=== PATIENT | male | born 1950 | race Caucasian/White ===

== ENCOUNTER 2016-06-11 09:32 | Observation (INO) | payer OTHER ==
--- NOTE | 2016-06-11 09:46 | CPEKG ---
Heart Rate: 54 RR Interval: 1111 P-R Interval: 224 QRSD Interval: 82 QT Interval: 424 QTC Interval: 402 P [place]: 25 QRS [place]: -2 T Wave [place]: 8 EKG Severity - ABNORMAL ECG - EKG Impression: SINUS RHYTHM EKG Impression: FIRST DEGREE AV BLOCK EKG Impression: similar to previous Electronically Signed By: Geovanny Stock 11-Jun-2016 11:44:02
[2016-06-11 10:31] LABS: % IMMATURE GRANULYOCYTES 0.2 % (0.0-1.1); ABSOLUTE IMMATURE GRANULOCYTES 0.01 10^3/uL (0.00-0.10); ADD DIFF? NO; ADD MORPH? NO; ADD SCAN? NO; ATYPICAL LYMPHOCYTE FLAG 20 (0-99); FRAGMENT RBC FLAG 0 (0-99); HEMATOCRIT 40.1 % (40.0-51.0); HEMOGLOBIN 13.9 g/dL (13.7-17.5); LEFT SHIFT FLG 0 (0-99); LIPEMIA HEMOLYSIS FLAG 90 (0-99); MEAN CELL HEMOGLOBIN 31.6 pg (27.9-34.1); MEAN CELL HEMOGLOBIN CONCENTR. 34.7 g/dL (32.4-36.7); MEAN CELL VOLUME 91.1 fL (81.5-99.8); MEAN PLATELET VOLUME 10.1 fL (8.7-11.7); PLATELET CLUMPS FLAG 0 (0-99); PLATELET COUNT 259 10^3/uL (150-400); RED CELL DISTRIBUTION WIDTH 12.9 % (11.5-15.2)
[2016-06-11 10:39] LABS: ANION GAP 10 mEq/L (8-16); CALCIUM 9.1 mg/dL (8.5-10.4); CARBON DIOXIDE 25 mEq/l (22-31); CHLORIDE 110 mEq/L (97-110); CREATININE 0.9 mg/dL (0.7-1.3); GLOMERULAR FILTRATION RATE > 60; GLUCOSE 120 mg/dL (70-100); POTASSIUM 4.4 mEq/L (3.5-5.2); SODIUM 145 mEq/L (134-144)
[2016-06-11 10:50] LABS: TROPONIN I < 0.012 ng/mL (0-0.034)
--- NOTE | 2016-06-11 11:29 | DX ---
Portable Chest, Single View 10:39 AM Indication: Chest pain Comparison: Two-view chest dated April 13, 2016 Findings: Lungs are well aerated and clear. No pneumothorax, edema, airspace consolidation or effusio n. Heart size normal for technique. A screw overlying the right glenoid and minimal deformity distal right clavicle are unchanged. Impression: Clear lungs. No acute process.
--- NOTE | 2016-06-11 11:33 | EDPHY ---
H & P Stated Complaint: sob/dizzy substernal cp Time Seen by Provider: 06/11/16 11:12 HPI/ROS: CHIEF COMPLAINT: Pre syncope HISTORY OF PRESENT ILLNESS: The patient is a 65-year-old healthy man with a history of SVT status post ablation currently on Xarelto for history of PE that was provoked by surgery and on verapamil for frequent PVCs that have subsided over the last couple of weeks. He is seen by Dr. Peralta. Yesterday he was doing some remodeling and noticed that every time he bends forward and stood back up he felt very lightheaded. His symptoms resolved after several seconds. Today he felt short of breath walking the dog or walking from the car the hospital. He denies chest pain or GI symptoms. He is not short of breath at rest. Denies recent febrile or viral type infections. REVIEW OF SYSTEMS: Constitutional: denies: chills, fever, recent illness, recent injury EENTM: denies: blurred vision, double vision, nose congestion Respiratory: See HPI Cardiac: denies: chest pain, irregular heart rate, lightheadedness, palpitations Gastrointestinal/Abdominal: denies: abdominal pain, diarrhea, nausea, vomiting, blood streaked stools Genitourinary: denies: dysuria, frequency, hematuria, pain Musculoskeletal: denies: joint pain, muscle pain Skin: denies: lesions, rash, jaundice, bruising Neurological: denies: headache, numbness, paresthesia, tingling, dizziness, weakness Hematologic/Lymphatic: denies: blood clots, easy bleeding, easy bruising Immunologic/allergic: denies: HIV/AIDS, transplant EXAM: GENERAL: Well-appearing, well-nourished and in no acute distress. HEAD: Atraumatic, normocephalic. EYES: Pupils equal round and reactive to light, extraocular movements intact, sclera anicteric, conjunctiva are normal. ENT: TMs normal, nares patent, oropharynx clear without exudates. Moist mucous membranes. NECK: Normal range of motion, supple without lymphadenopathy or JVD. LUNGS: Breath sounds clear to auscultation bilaterally and equal. No wheezes rales or rhonchi. HEART: Regular rate and rhythm without murmurs, rubs or gallops. ABDOMEN: Soft, nontender, normoactive bowel sounds. No guarding, no rebound. No masses appreciated. BACK: No CVA tenderness, no spinal tenderness, step-offs or deformities EXTREMITIES: Normal range of motion, no pitting or edema. No clubbing or cyanosis. NEUROLOGICAL: Cranial nerves II through XII grossly intact. Normal speech, normal gait. 5/5 strength, normal movement in all extremities, normal sensation PSYCH: Normal mood, normal affect. SKIN: Warm, dry, normal turgor, no visible rashes or lesions. Source: Patient Exam Limitations: No limitations - Personal History Current Tetanus/Diphtheria Vaccine: Yes Tetanus Vaccine Date: 08/2011 - Medical/Surgical History Hx Asthma: No Hx Chronic Respiratory Disease: No Hx Diabetes: No Hx Cardiac Disease: Yes Hx Renal Disease: No Hx Cirrhosis: No Hx Alcoholism: No Hx HIV/AIDS: No Hx Splenectomy or Spleen Trauma: No Other PMH: Prostate CA, ablation for SVT hr last year/knee and shoulder surgery T&A/ DVT, inguinal hernia repair. - Family History Significant Family History: No pertinent family hx - Social History Smoking Status: Never smoked Alcohol Use: Sober Drug Use: None Constitutional: Initial Vital Signs Temperature (C) 36.4 C 06/11/16 09:36 Heart Rate 56 L 06/11/16 09:36 Respiratory Rate 18 06/11/16 09:36 Blood Pressure 120/66 06/11/16 09:36 O2 Sat (%) 95 06/11/16 09:36 O2 Delivery Mode Room Air Allergies/Adverse Reactions: Iodinated Contrast Media - Oral and Allergy (Severe, Verified 06/11/16 09:34) Hives enoxaparin sodium [From Lovenox] Allergy (Intermediate, Verified 06/11/16 09:34) Rash Penicillins Allergy (Verified 06/11/16 09:34) Unknown Home Medications: Medication Instructions Recorded Atorvastatin Calcium [Lipitor 10 10 mg PO DAILY 05/27/15 mg (*)] Carboxymethylcellulose 1% [Refresh 1 drop EACHEYE Q4 PRN 05/27/15 Celluvisc (*)] Rivaroxaban [Xarelto 10mg (*)] 20 mg PO DAILY 05/27/15 Verapamil HCl [Verapamil Sr] 120 mg PO DAILY 06/11/16 Medical Decision Making - Diagnostics EKG Interpretation: An EKG obtained and was read and documented in trace view. Please see trace view for full reading and report. Sinus rhythm, rate of 54 first-degree block ED Course/Re-evaluation: The patient is asymptomatic while lying in bed. He is currently symptomatic that when he exerts himself or clinically orthostatic. His blood pressure is stable. He is sinus bradycardia on EKG with a first-degree block. I will admit him for observation the EACU and anticipate he will be seen by Dr. Peralta as well. I discussed the case with Radha who will admit to Dr. madison 12:04 p.m. I discussed the case with Dr. Peralta who will consult. Differential Diagnosis: Partial list of the Differential diagnosis considered include but were not limited to; arrhythmia, pre syncope, dehydration, sepsis, acute coronary disease, bradycardia and although unlikely based on the history and physical exam, I also considered dissection, aneurysm, PE. - Data Points Laboratory Results: Laboratory Results 06/11/16 09:50 06/11/16 09:50 06/11/16 09:50 WBC 5.16 10^3/uL (3.80-9.50) RBC 4.40 10^6/uL (4.40-6.38) Hgb 13.9 g/dL (13.7-17.5) Hct 40.1 % (40.0-51.0) MCV 91.1 fL (81.5-99.8) MCH 31.6 pg (27.9-34.1) MCHC 34.7 g/dL (32.4-36.7) RDW 12.9 % (11.5-15.2) Plt Count 259 10^3/uL (150-400) MPV 10.1 fL (8.7-11.7) Neut % (Auto) 54.3 % (39.3-74.2) Lymph % (Auto) 34.3 % (15.0-45.0) [place] % (Auto) 8.5 % (4.5-13.0) Eos % (Auto) 1.9 % (0.6-7.6) Baso % (Auto) 0.8 % (0.3-1.7) Nucleat RBC Rel Count 0.0 % (0.0-0.2) Absolute Neuts (auto) 2.80 10^3/uL (1.70-6.50) Absolute Lymphs (auto) 1.77 10^3/uL (1.00-3.00) Absolute Monos (auto) 0.44 10^3/uL (0.30-0.80) Absolute Eos (auto) 0.10 10^3/uL (0.03-0.40) Absolute Basos (auto) 0.04 10^3/uL (0.02-0.10) Absolute Nucleated RBC 0.00 10^3/uL (0-0.01) Immature Gran % 0.2 % (0.0-1.1) Immature Gran # 0.01 10^3/uL (0.00-0.10) Sodium 145 H mEq/L (134-144) Potassium 4.4 mEq/L (3.5-5.2) Chloride 110 mEq/L (97-110) Carbon Dioxide 25 mEq/l (22-31) Anion Gap 10 mEq/L (8-16) BUN 18 mg/dL (7-23) Creatinine 0.9 mg/dL (0.7-1.3) Estimated GFR > 60 Glucose 120 H mg/dL (70-100) Calcium 9.1 mg/dL (8.5-10.4) Troponin I < 0.012 ng/mL (0-0.034) Departure - Departure Disposition: [facility] Inpatient Acute Clinical Impression: Pre-syncope, Bradycardia Condition: Fair
[2016-06-11] MEDS ORDERED: ONDANSETRON DISINTEGRATING 4 MG TAB PO PRN (13:11)
[2016-06-11] MEDS ORDERED: ACETAMINOPHEN 325 MG TAB PO PRN (13:11)
[2016-06-11] MEDS ORDERED: CARBOXYMETHYLCELLULOSE 1% 0.4 ML DROPERETTE EACHEYE PRN (13:13)
--- NOTE | 2016-06-11 15:23 | US ---
Bilateral Duplex/Doppler Carotid Sonography Clinical Indications: Dizziness, cardiac disease. Technique: The cervical portions of the carotid and vertebral arteries were imaged and interrogated by color and pulsed Duplex/Doppler. Spectral analysis was performed. Findings: Right Carotid: Right CCA peak systolic velocity = 75 cm/sec Right ICA peak systolic velocity = 88 cm/sec Right ECA peak systolic velocity = 67 cm/sec Right ICA/CCA systolic velocity ratio = 1.2 Velocities correlate to less than 50% diameter stenosis of the origin of the right internal carotid a rtery with respect to the normal distal internal carotid artery. Mild calcified plaque involving the right carotid bulb and proximal right internal carotid artery. Left Carotid: Left CCA peak systolic velocity = 71 cm/sec Left ICA peak systolic velocity = 86 cm/sec Left ECA peak systolic velocity = 59 cm/sec Left ICA/CCA systolic velocity ratio = 1.2 Velocities correlate to less than 50% diameter stenosis of the origin of the left internal carotid ar kelly with respect to the normal distal internal carotid artery. Mild calcified plaque involving the l eft carotid bulb and proximal left internal carotid artery. Vertebral Arteries: Antegrade flow is shown by pulsed Doppler of each vertebral artery. Impression: 1. Mild atherosclerotic disease bilateral carotid bulbs. 2. Velocities correlate to less than 50% diameter stenosis of the origin of the right internal caroti d artery. 3. Velocities correlate to less than 50% diameter stenosis of the origin of the left internal carotid artery. 4. Bilateral vertebral arteries are patent with antegrade flow. Measurement of carotid stenosis is based on velocity parameters that correlate the residual internal carotid diameter with [place] Symptomatic Carotid Endarterectomy Trial (NASCET) based stenosis levels.
[2016-06-11 20:12] VITALS: PULSE 54
--- NOTE | 2016-06-11 20:24 | PDGENHP ---
History and Physical - Chief Complaint Acute near syncope - History of Present Illness PCP: Dr Belcher Sandblasting Supervisor: Dr Peralta HPI: 65 yo M p/w acute near syncope characterized as feeling of "unsteadiness" w / associated shortness of breath, onset of symptoms on 06/10/16, duration lasting only seconds initially, then recurring and lasting approx 15 minutes on . The occurred at rest, but did seem to be exacerbated by standing and flexing at the waist. Alleviated by sitting and resting. He has also noted recent reduction in exercise tolerance and symptoms of lethargy over past several weeks. He reports his sleep has not been particularly poor, albeit he is only able to address his sleep apnea by attempting to sleep on his side. His oral intake of solids and liquids has been at his baseline, and he has not over indulged in alcohol. He denies parasthesias/paresis/headaches/overt chest pains , and reports that his palpitations have been alleviated by verapmil started approx 3 weeks ago. History Information - Allergies/Home Medication List Allergies/Adverse Reactions: Iodinated Contrast Media - Oral and Allergy (Severe, Verified 06/11/16 09:34) Hives enoxaparin sodium [From Lovenox] Allergy (Intermediate, Verified 06/11/16 09:34) Rash Penicillins Allergy (Verified 06/11/16 09:34) Unknown Home Medications: Atorvastatin Calcium [Lipitor 10 mg (*)] 10 mg PO DAILY 05/27/15 [Last Taken 02/15] Carboxymethylcellulose 1% [Refresh Celluvisc (*)] 1 drop EACHEYE Q4 PRN [Last Taken 05/24/15] Rivaroxaban [Xarelto 10mg (*)] 20 mg PO DAILY 05/27/15 [Last Taken 06/11/16] Verapamil HCl [Verapamil Sr] 120 mg PO DAILY 06/11/16 [Last Taken 06/11/16] I have personally reviewed and updated: family history, medical history, social history, surgical history - Past Medical History hyperlipidemia Additional medical history: Prostate Cancer. SVT s/p ablation. Symptomatic PVCs. Provoked PE - Surgical History Reports: hernia repair Additional surgical history: Knee, Shoulder, Vasectomy, Prostatectomy - Family History Additional family history: mother CVA, no CAD - Social History Smoking Status: Never smoked Alcohol Use: Occasionally Drug Use: None Additional social history: iADLs, works as a contractor, good baseline level of physical activity Review of Systems ROS: 10pt was reviewed & negative except for what was stated in HPI & below Constitutional: Reports: weakness Neurological: Reports: other (fatigue, unsteadiness) Physical Exam Temp Pulse Resp BP Pulse Ox 36.6 C 54 L 12 131/75 H 96 06/11/16 17:00 06/11/16 20:00 06/11/16 20:00 06/11/16 20:00 06/11/16 20:00 Constitutional: no apparent distress, appears nourished, not in pain Eyes: PERRL, anicteric sclera, EOMI Ears, Nose, Mouth, Throat: moist mucous membranes, hearing normal, ears appear normal, no oral mucosal ulcers Cardiovascular: regular rate and rhythym, no murmur, rub, or gallop, No edema Respiratory: no respiratory distress, no rales or rhonchi, clear to auscultation Gastrointestinal: normoactive bowel sounds, soft, non-tender abdomen, no palpable masses Skin: warm, normal color, no rashes or abrasions, no fluctuance, no induration, No mottled Musculoskeletal: full muscle strength, no muscle tenderness, normal joint ROM, no joint effusions Neurologic: AAOx3, sensation intact bilaterally, CN II-XII Intact, No weakness Psychiatric: interacting appropriately, not anxious, not encephalopathic, thought process linear Lab Data & Imaging Review 06/11/16 09:50 06/11/16 09:50 WBC 5.16 10^3/uL (3.80-9.50) 06/11/16 09:50 RBC 4.40 10^6/uL (4.40-6.38) 06/11/16 09:50 Hgb 13.9 g/dL (13.7-17.5) 06/11/16 09:50 Hct 40.1 % (40.0-51.0) 06/11/16 09:50 MCV 91.1 fL (81.5-99.8) 06/11/16 09:50 MCH 31.6 pg (27.9-34.1) 06/11/16 09:50 MCHC 34.7 g/dL (32.4-36.7) 06/11/16 09:50 RDW 12.9 % (11.5-15.2) 06/11/16 09:50 Plt Count 259 10^3/uL (150-400) 06/11/16 09:50 MPV 10.1 fL (8.7-11.7) 06/11/16 09:50 Neut % (Auto) 54.3 % (39.3-74.2) 06/11/16 09:50 Lymph % (Auto) 34.3 % (15.0-45.0) 06/11/16 09:50 [place] % (Auto) 8.5 % (4.5-13.0) 06/11/16 09:50 Eos % (Auto) 1.9 % (0.6-7.6) 06/11/16 09:50 Baso % (Auto) 0.8 % (0.3-1.7) 06/11/16 09:50 Nucleat RBC Rel Count 0.0 % (0.0-0.2) 06/11/16 09:50 Absolute Neuts (auto) 2.80 10^3/uL (1.70-6.50) 06/11/16 09:50 Absolute Lymphs (auto) 1.77 10^3/uL (1.00-3.00) 06/11/16 09:50 Absolute Monos (auto) 0.44 10^3/uL (0.30-0.80) 06/11/16 09:50 Absolute Eos (auto) 0.10 10^3/uL (0.03-0.40) 06/11/16 09:50 Absolute Basos (auto) 0.04 10^3/uL (0.02-0.10) 06/11/16 09:50 Absolute Nucleated RBC 0.00 10^3/uL (0-0.01) 06/11/16 09:50 Immature Gran % 0.2 % (0.0-1.1) 06/11/16 09:50 Immature Gran # 0.01 10^3/uL (0.00-0.10) 06/11/16 09:50 Sodium 145 mEq/L (134-144) H 06/11/16 09:50 Potassium 4.4 mEq/L (3.5-5.2) 06/11/16 09:50 Chloride 110 mEq/L (97-110) 06/11/16 09:50 Carbon Dioxide 25 mEq/l (22-31) 06/11/16 09:50 Anion Gap 10 mEq/L (8-16) 06/11/16 09:50 BUN 18 mg/dL (7-23) 06/11/16 09:50 Creatinine 0.9 mg/dL (0.7-1.3) 06/11/16 09:50 Estimated GFR > 60 06/11/16 09:50 Glucose 120 mg/dL (70-100) H 06/11/16 09:50 Calcium 9.1 mg/dL (8.5-10.4) 06/11/16 09:50 Troponin I < 0.012 ng/mL (0-0.034) 06/11/16 09:50 Visualized and Interpreted Chest x-ray results: Yes Chest X-Ray results: no infiltrate Visualized and Interpreted EKG results: Yes EKG Interpretation: Positive for: other (TWI in lead III, 1st AVB) Assessment & Plan Assessment: 65 yo M p/w pre-syncopal symptoms Plan: 1. Pre-syncope. Acute, new problem, further w/u indicated. Concerning for recurrent arrhythmia vs. vertebrabasilar insufficiency vs. ACS vs. obstructive CAD - PE less likely given that he is fully anticoagulated - monitor on tele o/n and place on outpt event monitor/linq if no arrhythmia captured - get ant/post circ US - cycle cardiac enzymes - d/w Dr. Peralta, he will review patient's stress test/echo which have reportedly been completed within past year and determine whether they should be repeated given his recent reduction in exercise tolerance vs. cath - make NPO in AM - get orthostatic VS 2. PVCs. Cont verapamil - reviewed outside records including ED Report by Dr. Geovanny Stock 04/13/16, given bystolic for symptomatic PVCs, adjusted to verapamil as outpt 3. Hx PE. Cont xarelto Diet. Regular PPx. High risk, on xarelto Code. Full Dispo. ADD 06/12/16, pending further w/u above
[2016-06-11] MEDS ORDERED: NS 1,000 ML IV SCH (23:45)
[2016-06-12 04:52] LABS: % IMMATURE GRANULYOCYTES 0.2 % (0.0-1.1); ABSOLUTE IMMATURE GRANULOCYTES 0.01 10^3/uL (0.00-0.10); ADD DIFF? NO; ADD MORPH? NO; ADD SCAN? NO; ATYPICAL LYMPHOCYTE FLAG 10 (0-99); FRAGMENT RBC FLAG 0 (0-99); HEMATOCRIT 38.4 % (40.0-51.0); HEMOGLOBIN 12.9 g/dL (13.7-17.5); LEFT SHIFT FLG 0 (0-99); LIPEMIA HEMOLYSIS FLAG 80 (0-99); MEAN CELL HEMOGLOBIN 31.2 pg (27.9-34.1); MEAN CELL HEMOGLOBIN CONCENTR. 33.6 g/dL (32.4-36.7); MEAN CELL VOLUME 92.8 fL (81.5-99.8); MEAN PLATELET VOLUME 9.7 fL (8.7-11.7); PLATELET CLUMPS FLAG 0 (0-99); PLATELET COUNT 218 10^3/uL (150-400); RED BLOOD CELL COUNT 4.14 10^6/uL (4.40-6.38); RED CELL DISTRIBUTION WIDTH 13.1 % (11.5-15.2)
[2016-06-12 05:19] LABS: ANION GAP 9 mEq/L (8-16); CARBON DIOXIDE 24 mEq/l (22-31); CHLORIDE 111 mEq/L (97-110); CREATININE 0.9 mg/dL (0.7-1.3); GLOMERULAR FILTRATION RATE > 60; GLUCOSE 97 mg/dL (70-100); POTASSIUM 4.3 mEq/L (3.5-5.2); SODIUM 144 mEq/L (134-144)
[2016-06-12 05:32] LABS: TROPONIN I < 0.012 ng/mL (0-0.034)
[2016-06-12 08:22] VITALS: BP 128/74; RESP 18; TEMP 98; O2SAT 94
[2016-06-12] MEDS ORDERED: VERAPAMIL ER 120 MG TAB PO SCH (09:00)
[2016-06-12] MEDS ORDERED: RIVAROXABAN 10 MG TAB PO SCH (09:00)
[2016-06-12] MEDS ORDERED: NON-FORMULARY NEW DRUG (Verapamil Hcl [Verapamil Sr] 120 MG) PO SCH (09:00)
[2016-06-12] MEDS ORDERED: ATORVASTATIN CALCIUM 10 MG TAB PO SCH (09:00)
--- NOTE | 2016-06-12 12:01 | PDDCSUM ---
Discharge Summary Discharge Summary: DISCHARGE SUMMARY FOLLOW-UP ITEMS: Follow-up linq recorder results DATE OF ADMISSION: 06/11/2016 DATE OF DISCHARGE: 06/12/2016 DISCHARGE DIAGNOSES: 1. Acute presyncope 2. Chronic PVCs 3. History of pulmonary embolism CONSULTATIONS: Cardiology by Dr. Peralta PROCEDURES / IMAGING: Carotid ultrasounds demonstrating no anterior or posterior circulating severe stenosis, patient has less than 50% stenosis bilaterally anteriorly CHIEF COMPLAINT: Acute presyncopal symptoms SUBJECTIVE: Patient feeling well, no recurrence of symptoms PHYSICAL EXAM ON DISCHARGE: Systolic blood pressure is negative on orthostatics, heart rate in the 50-60 range, systolic blood pressure 110 to 130 range, alert awake oriented x3 no apparent distress LABS ON DISCHARGE: Troponin negative HOSPITAL COURSE BY PROBLEM: 1. Acute presyncope. Patient presented with presyncopal symptoms including unsteadiness shortness of breath and generally feeling unwell. Is unclear whether his symptoms are secondary to anxiety or arrhythmia or bradycardia. The patient certainly had relative sinus bradycardia in the setting of verapamil use, but he is hesitant to discontinue his verapamil given his symptomatic PVCs. Dr. Peralta reviewed patient's most recent stress test and echocardiogram and was determined that no further cardiac risk stratification is indicated at this time. He did insert a link recorder and this will be reviewed in the outpatient setting. Of note, orthostatic vital signs were unremarkable, anterior and posterior circulation ultrasounds were also unremarkable, telemetry did not demonstrate a any arrhythmia. 2. Chronic PVCs. Patient has chronic PVCs and is currently on verapamil for this issue. 3. History of pulmonary embolism. Patient was continued on Xarelto. DISCHARGE MEDICATIONS: Please see official discharge medication reconciliation sheet in chart , no medication changes were made. DISCHARGE INSTRUCTIONS: Patient should follow up with Dr. Peralta within 3-5 days of discharge.
--- NOTE | 2016-06-14 17:31 | SUROPNOTE ---
[facility] Operative Report - Surgery Date of Procedure: 06/12/16 Indication: This patient is a 65 year old man, with a history of chronic PVCs, who presented to the hospital with acute pre-syncopal episode. His presentation was notable for sinus bradycardia in the setting of verapamil use. Implantable loop recorder placed in order to determine if arrhythmia or symptomatic bradycardia precipitated the presyncopal event. Procedure performed: 1. Placement of an implantable loop recorder. Description of procedure: Risks, benefits, and alternatives were discussed in detail. Informed consent was obtained. Left anterior chest was sterilely prepped and draped. 30cc of 1% lidocaine with epinephrine was utilized for local anesthetic, injected with a micropuncture needle. A skin incision was made with a #15 blade. Tract was dilated using dilating tool. The device was implanted with the implantation device. The antenna was placed cephalad. The incision was closed with samantha. Device implanted: [Company, name, model, serial] Portions of this note were documented by a medical investigator. I have reviewed this report and agree with its documentation. Report scribed for Dr. Percy Peralta. Report scribed by Dipti Dalal.
== END 2016-06-12 12:36 | disposition home or self-care (01) ==
LOC: F1N 12:09
PROVIDERS: ADMIT Internal Medicine; ATTEND Internal Medicine
PROC: 0JH60PZ Insertion of Cardiac Rhythm Related Device into Chest Subcutaneous Tissue and Fascia, Open Approach (ICD-10-PCS; principal; 2016-06-11)
DX: R55 Syncope and collapse (principal); I49.3 Ventricular premature depolarization; Z86.711 Personal history of pulmonary embolism; Z85.46 Personal history of malignant neoplasm of prostate; Z88.0 Allergy status to penicillin; I47.1 Supraventricular tachycardia; I25.10 Atherosclerotic heart disease of native coronary artery without angina pectoris; E78.5 Hyperlipidemia, unspecified; G47.33 Obstructive sleep apnea (adult) (pediatric)
CPT/HCPCS: 33282; 71010; 93005; 93880; 99285; G0378

== ENCOUNTER 2017-03-16 07:40 | Observation (INO) | payer OTHER ==
[2017-03-16] MEDS ORDERED: methylPREDNISolone SOD SUCC 125 MG/2 ML VIAL IVP ONE (07:42)
[2017-03-16] MEDS ORDERED: NS 1,000 ML IV ONE (07:42)
[2017-03-16] MEDS ORDERED: FAMOTIDINE 20 MG/NACL 50 ML IV ONE (07:42)
[2017-03-16] MEDS ORDERED: DIAZEPAM 5 MG TAB PO ONE (07:42)
[2017-03-16] MEDS ORDERED: ASPIRIN EC 325 MG TAB PO ONE (07:42)
--- NOTE | 2017-03-16 08:00 | CPEKG ---
Heart Rate: 55 RR Interval: 1091 P-R Interval: 216 QRSD Interval: 104 QT Interval: 452 QTC Interval: 433 P [place]: 22 QRS [place]: 2 T Wave [place]: 19 EKG Severity - NORMAL ECG - EKG Impression: SINUS RHYTHM Electronically Signed By: Issac Evangelista 16-Mar-2017 17:17:11
[2017-03-16 08:11] LABS: % IMMATURE GRANULYOCYTES 0.2 % (0.0-1.1); ABSOLUTE IMMATURE GRANULOCYTES 0.01 10^3/uL (0.00-0.10); ADD DIFF? NO; ADD MORPH? NO; ADD SCAN? NO; ATYPICAL LYMPHOCYTE FLAG 10 (0-99); FRAGMENT RBC FLAG 0 (0-99); HEMATOCRIT 41.7 % (40.0-51.0); HEMOGLOBIN 14.2 g/dL (13.7-17.5); LEFT SHIFT FLG 0 (0-99); LIPEMIA HEMOLYSIS FLAG 90 (0-99); MEAN CELL HEMOGLOBIN 31.5 pg (27.9-34.1); MEAN CELL HEMOGLOBIN CONCENTR. 34.1 g/dL (32.4-36.7); MEAN CELL VOLUME 92.5 fL (81.5-99.8); MEAN PLATELET VOLUME 9.9 fL (8.7-11.7); PLATELET CLUMPS FLAG 0 (0-99); PLATELET COUNT 244 10^3/uL (150-400); RED BLOOD CELL COUNT 4.51 10^6/uL (4.40-6.38)
[2017-03-16 08:19] LABS: INR 1.16 (0.83-1.16); PROTIME(PATIENT) 14.8 SEC (12.0-15.0)
[2017-03-16 08:27] LABS: ANION GAP 9 mEq/L (8-16); CALCIUM 9.2 mg/dL (8.5-10.4); CARBON DIOXIDE 26 mEq/l (22-31); CHLORIDE 110 mEq/L (97-110); CHOLESTEROL 126 mg/dL (140-220); GLOMERULAR FILTRATION RATE > 60; GLUCOSE 100 mg/dL (70-100); HIGH DENSITY LIPOPROTEIN 45 mg/dL (40-65); LDL/HDL RATIO 1.47 RATIO (1.00-3.64); LOW DENSITY LIPOPROTEIN 66 mg/dL (80-100); NON-HIGH DENSITY LIPOPROTEIN 81 mg/dL (90-129); POTASSIUM 4.4 mEq/L (3.5-5.2); SODIUM 145 mEq/L (134-144); TRIGLYCERIDE 78 mg/dL (40-150); VERY LOW DENSITY LIPOPROTEINS 15 mg/dL (8-25)
[2017-03-16] MEDS ORDERED: LIDOCAINE 1% 300 MG/30 ML SDV ONE (09:04)
[2017-03-16] MEDS ORDERED: MIDAZOLAM 2 MG/2 ML VIAL ONE (09:05)
[2017-03-16] MEDS ORDERED: fentaNYL 100 MCG/2 ML INJ ONE (09:05)
[2017-03-16] MEDS ORDERED: IOPAMIDOL (ISOVUE-370) 150 ML BTL IV ONE (09:05)
[2017-03-16] MEDS ORDERED: ADENOSINE 90 MG/30 ML VIAL IV ONE (09:06)
[2017-03-16] MEDS ORDERED: CLOPIDOGREL BISULFATE 75 MG TAB ONE (10:21)
--- NOTE | 2017-03-16 10:25 | PDHPUP ---
History & Physical Update H&P update statement: This history and physical update is based on an assessment of the patient which was completed after admission or registration (within 24 hours), but prior to the surgery/procedure. H&P update: no change in patient's condition since H&P completed
--- NOTE | 2017-03-16 10:25 | PDPROPOC ---
Sedation Plan of Care Sedation Plan of Care: mental status noted, patient educated of risks, benefits , alternatives, patient can tolerate sedation ASA Classification: ASA 2 Planned drugs: fentanyl, midazolam Mallampati Score: Class 2 Mallampati Reference Image: Patient passed 3-3-2 rule?: Yes
[2017-03-16] MEDS ORDERED: CLOPIDOGREL BISULFATE 75 MG TAB PO ONE (10:30)
[2017-03-16] MEDS ORDERED: BIVALIRUDIN 250 MG/5 ML VIAL IV ONE (10:50)
[2017-03-16] MEDS ORDERED: LORazepam 2 MG/ML INJ IVP PRN (11:36)
[2017-03-16] MEDS ORDERED: TEMAZEPAM 15 MG CAP PO PRN (11:36)
[2017-03-16] MEDS ORDERED: OXYCODONE/APAP 5/325 TAB PO PRN (11:36)
[2017-03-16] MEDS ORDERED: ONDANSETRON 4 MG/2 ML VIAL IVP PRN (11:36)
[2017-03-16] MEDS ORDERED: NITROGLYCERIN 0.4 MG BTL SL PRN (11:36)
[2017-03-16] MEDS ORDERED: ATROPINE SULFATE 1 MG/10 ML SYR IVP PRN (11:36)
[2017-03-16] MEDS ORDERED: HYDROCODONE/APAP 5/325 TAB PO PRN (11:36)
[2017-03-16] MEDS ORDERED: CARBOXYMETHYLCELLULOSE 1% 0.4 ML DROPERETTE EACHEYE PRN (11:42)
--- NOTE | 2017-03-16 12:13 | CPEKG ---
Heart Rate: 53 RR Interval: 1132 P-R Interval: 236 QRSD Interval: 92 QT Interval: 452 QTC Interval: 425 P [place]: 45 QRS [place]: -5 T Wave [place]: 29 EKG Severity - ABNORMAL ECG - EKG Impression: SINUS RHYTHM EKG Impression: FIRST DEGREE AV BLOCK Electronically Signed By: Issac Evangelista 16-Mar-2017 17:17:05
--- NOTE | 2017-03-16 22:03 | CPIP ---
[f rep st] INVASIVE CARDIAC PROCEDURE DATE OF PROCEDURE: 03/16/2017 INDICATIONS FOR PROCEDURE: Premature ventricular contractions, shortness of breath. PROCEDURE: 1. Nonselective right groin sheathogram. 2. Bilateral coronary angiography. 3. Left heart catheterization. 4. Left ventriculogram. 5. Percutaneous coronary intervention of iFR of ostial proximal left anterior descending. 6. Previous coronary intervention of ostial left anterior descending utilizing Synergy 3.0 x 16 mm d rug-eluting stent. BRIEF HISTORY: This is a 66-year-old male with history of known ostial proximal 50% LAD disease, who has been having worsening PVCs despite medical therapy. Given the patient's symptoms, as well as el ectrical findings, patient is consented for left heart catheterization. DESCRIPTION OF PROCEDURE: After informed consent, The patient was brought to [facility], where the right gr oin was prepped and draped in a sterile fashion, lidocaine. A short 6-Kazakh sheath in the right com mon femoral artery, verified angiographically. Through the 6-Kazakh sheath, a JL4 catheter was advan sharad in the left coronary artery. Images of the left coronary artery revealed normal left main. Left circumflex artery appeared to give off a ffxkfb-pd-qyihn marginal artery proximally, a smaller lobito nal artery secondary and appeared to be a left dominant circulation with an , LPDA, both o f which were healthy for disease. The LAD had proximal ostial and proximal tubular disease ranging u p to 70% angiographically. Distally the vessel appeared to be quite healthy with no significant steno sis, giving off a medium-sized diagonal artery in the midbody. After images were obtained, the JL4 c atheter was removed. The JR4 catheter advanced in the right coronary artery. Images of the right co ronary artery revealed normal ostial RCA and a nondominant right coronary artery which was healthy an d free of disease. The catheter was then pulled back. The pigtail catheter was advanced to the left ventricle. EDP was 50 mmHg. Left ventriculogram in ABAD position. EF of 65% with no wall motion ab normalities. There were no wall motion abnormalities. There was no pull-back gradient between the L V and the aorta. Pigtail catheter was removed over 0.035 guidewire. INTERVENTIONAL REPORT: At this time, the patient was administered 600 mg of Plavix p.o. and started on Angiomax bolus and drip. An EBU 3.5 guide was advanced to the aorta. The EBU was equalized in the aorta and an iFR wire and catheter were set up. This was again zeroed appropriately and equalized. Once this was performed, the EBU guide catheter was advanced into the left coronary artery where the iFR wire was then advanced down the LAD. iFR measurements were then obtained which showed an iFR of 0.83, indicating clinical physiologic significance of the proximal LAD lesion. We decided to proceed with intervention of the lesion with a predilatation with a 3.0 x 12 mm balloon at 10 atmospheres as performed. We then proceeded with stenting of the vessel with 3.0 x 60 mm Synergy stent deployed at 16 atmospheres. After deployment, angiogram obtained showed excellent patency of the stented area w ith no evidence of dissection or perforation. This was verified in orthogonal views. The wire was p ulled back. The guide catheter was removed. The right groin was sutured in place. Patient tolerate d the procedure well. No complications. IMPRESSION: 1. Successful percutaneous coronary intervention of high-grade ostial proximal left anterior descend ing which was verified by iFR prior to percutaneous coronary intervention. 2. Normal nondominant right coronary artery. 3. Normal left dominant left circumflex artery. 4. Normal ejection fraction. PLAN: The patient will be admitted overnight. If clinically stable, discharge within 24 hours. /[id number]/MODL
[2017-03-17 04:25] VITALS: O2SAT 94
[2017-03-17 05:33] LABS: % IMMATURE GRANULYOCYTES 0.5 % (0.0-1.1); ABSOLUTE IMMATURE GRANULOCYTES 0.06 10^3/uL (0.00-0.10); ADD DIFF? NO; ADD MORPH? NO; ADD SCAN? NO; ATYPICAL LYMPHOCYTE FLAG 0 (0-99); FRAGMENT RBC FLAG 0 (0-99); HEMOGLOBIN 13.4 g/dL (13.7-17.5); LEFT SHIFT FLG 0 (0-99); LIPEMIA HEMOLYSIS FLAG 80 (0-99); MEAN CELL HEMOGLOBIN 30.7 pg (27.9-34.1); MEAN CELL HEMOGLOBIN CONCENTR. 33.5 g/dL (32.4-36.7); MEAN CELL VOLUME 91.7 fL (81.5-99.8); MEAN PLATELET VOLUME 10.5 fL (8.7-11.7); PLATELET CLUMPS FLAG 0 (0-99); PLATELET COUNT 253 10^3/uL (150-400); RED BLOOD CELL COUNT 4.36 10^6/uL (4.40-6.38); RED CELL DISTRIBUTION WIDTH 13.1 % (11.5-15.2)
[2017-03-17 05:46] LABS: ANION GAP 12 mEq/L (8-16); CALCIUM 9.2 mg/dL (8.5-10.4); CARBON DIOXIDE 21 mEq/l (22-31); CHLORIDE 106 mEq/L (97-110); GLOMERULAR FILTRATION RATE > 60; GLUCOSE 123 mg/dL (70-100); POTASSIUM 4.3 mEq/L (3.5-5.2); SODIUM 139 mEq/L (134-144)
--- NOTE | 2017-03-17 06:59 | PDCARPN ---
Cardiology Progress Note Chief Complaint: PVCs Assessment/Plan: Assessment: s/p PCI to oLAD Plan: 03/17/17 06:57 doing well WBC elevation most likely from steroids as pt is feeling great/afebrile d/c home today re-start xarelto stay on plavix can hold ASA Time Spent With Patient: 25 min Objective: Vital Signs (8 Hrs) Temp Pulse Resp BP Pulse Ox 03/17/17 04:00 36.5 C 97 16 135/66 H 94 03/16/17 23:23 36.4 C 86 15 108/57 L 92 Intake/Output (24 Hrs) 03/16/17 03/17/17 03/18/17 05:59 05:59 05:59 Intake Total 350 Output Total 350 Balance 0 Intake: Oral (ml) 350 Output: Urine (ml) 350 Urinal 350 Other: Weight 81.6 kg Number of Voids Toilet 2 Urinal 1 Result Diagrams: 03/17/17 04:12 03/17/17 04:12 - Physical Exam Constitutional: healthy appearing Eyes: PERRL Cardiovascular: regular rate and rhythm Respiratory: clear to auscultate bilat Skin: warm Musculoskeletal: no muscular tenderness Neurologic: AAOx3 Psychiatric: cooperative ICD10 Worksheet Patient Problems: Problems Problem Status Onset Bradycardia Acute Pre-syncope Acute Supraventricular tachycardia Acute Antiphospholipid antibody syndrome Chronic Pulmonary embolism Chronic
[2017-03-17 07:11] VITALS: BP 130/70; PULSE 123; RESP 18; TEMP 98.2
--- NOTE | 2017-03-17 08:26 | GCON ---
[f rep st] CONSULTATION DISCHARGE DIAGNOSIS: Coronary artery disease. HOSPITAL COURSE: Briefly, this is a 66-year-old male with history of frequent PVCs with known histor y of coronary artery disease who was consented for a left heart catheterization. The patient was fou nd to have high-grade ostial LAD disease 70%, which was verified by IFR, which came out to be 0.83. The patient underwent successful PCI of the proximal ostial LAD with a Synergy 3.0 x 16 mm drug-eluti ng stent. Post procedure, patient has done very well. The patient has been ambulating the [facility] problems. He will be discharged home this morning with his home medications. Of note, the cathy ent did have a slight elevation in white count to 12,000 secondary to most likely steroid utilization prior to contrast allergy, as he is feeling great and he is afebrile. The patient will be discharge d home with his home medications including Xarelto. He will be started on Plavix 75 p.o. daily. Giv en the fact that he is already on Xarelto, we will hold his baby aspirin to minimize any untoward ble eding issues. He will follow up in the office in 1 weeks' time. /[id number]/MODL
[2017-03-17] MEDS: ASPIRIN EC 81 MG TAB PO SCH ×2 (08:36→08:38)
--- NOTE | 2017-03-17 08:59 | CPEKG ---
Heart Rate: 59 RR Interval: 1017 P-R Interval: 216 QRSD Interval: 88 QT Interval: 440 QTC Interval: 436 P Austin: 49 QRS Austin: -3 T Wave Austin: 44 EKG Severity - NORMAL ECG - EKG Impression: SINUS RHYTHM EKG Impression: FIRST DEGREE AV BLOCK EKG Impression: LEFT VENTRICULAR HYPERTROPHY Electronically Signed By: Florin Horne 17-Mar-2017 18:30:28
[2017-03-17] MEDS ORDERED: DILTIAZEM CD 120 MG CAP PO SCH (09:00)
[2017-03-17] MEDS ORDERED: RIVAROXABAN 10 MG TAB PO SCH (09:00)
[2017-03-17] MEDS ORDERED: CLOPIDOGREL BISULFATE 75 MG TAB PO SCH (09:00)
[2017-03-17] MEDS ORDERED: ATORVASTATIN CALCIUM 10 MG TAB PO SCH (09:00)
--- NOTE | 2017-03-17 16:23 | ASDISCHSUM ---
Discharge Information Plan Status:Home with No Needs Medically Cleared to Leave:03/16/2017 Discharge Date:03/17/2017 10:50 AM CM D/C Disposition: ADT D/C Disposition:Home, Routine, Self-Care Projected Discharge Date:03/17/2017 12:00 AM Transportation at D/C: Discharge Delay Reason: Follow-Up Date:03/17/2017 12:00 AM Discharge Slot: Final Diagnosis: Placement Information Patient Contact Information Contact Name:JAVIER Relationship: Address:[address] City:[place] [facility] Phone: [facility]/Zip Code:[place] [address] Email: Financial Information Financial Class:HMO and PPO Plans Primary Plan Desc:[employer]YNCH PPO Primary Plan Number:[id number] Secondary Plan Desc: Secondary Plan Number: Assessment Information Intervention Information
== END 2017-03-17 10:50 | disposition home or self-care (01) ==
LOC: FCATH 07:40 → F2W 11:37
PROVIDERS: ADMIT Internal Medicine Cardiovascular Disease; ATTEND Internal Medicine Cardiovascular Disease
PROC: B2151ZZ Fluoroscopy of Left Heart using Low Osmolar Contrast (ICD-10-PCS; principal; 2017-03-16)
PROC: 4A1335C Monitoring of Arterial Flow, Coronary, Percutaneous Approach (ICD-10-PCS; principal; 2017-03-16)
PROC: 027034Z Dilation of Coronary Artery, One Artery with Drug-eluting Intraluminal Device, Percutaneous Approach (ICD-10-PCS; principal; 2017-03-16)
PROC: B2111ZZ Fluoroscopy of Multiple Coronary Arteries using Low Osmolar Contrast (ICD-10-PCS; principal; 2017-03-16)
PROC: 4A023N7 Measurement of Cardiac Sampling and Pressure, Left Heart, Percutaneous Approach (ICD-10-PCS; principal; 2017-03-16)
DX: I25.10 Atherosclerotic heart disease of native coronary artery without angina pectoris (principal); I49.3 Ventricular premature depolarization; G47.33 Obstructive sleep apnea (adult) (pediatric)
CPT/HCPCS: 92928; 93005; 93458; 93571; C1725; C1769; C1887; G0378; C1874; C9600; J0153; J0461; J0583; J1200; J1644; J2250; J2930; J3010; Q9967

== ENCOUNTER 2017-11-19 16:40 | Emergency (ER) | payer OTHER ==
--- NOTE | 2017-11-19 17:17 | EDPHY ---
H & P Time Seen by Provider: 11/19/17 17:02 HPI/ROS: CHIEF COMPLAINT: Dizziness and blurred vision HISTORY OF PRESENT ILLNESS: Patient is a 67-year-old male here with a chief complaint of dizziness and blurred vision starting yesterday evening. He reports that he has been feeling"off for the last few days and then last night he awoke from his sleep after having trouble sleeping around midnight. He is experiencing severe dry mouth and got up to go to the restroom and felt that he was off balance. He was able to ambulate to the restroom without difficulty. He has had no trouble picking up things or any weakness or numbness in his extremities. He went back to sleep but again struggled with sleep and only slept for about 2 hr this morning. Upon awakening he had continued blurry vision and feeling lightheaded. He also describes feeling that he is off balance when he is trying to walk but is able to walk. Approximately 1 hr prior to arrival in the ER he had approximately 3 min of left arm paresthesias but no weakness. Denies any chest pain or shortness of breath during this episode. Does have a history of coronary artery disease and had a stent placed last March 2017. Additionally he has a history of multiple pulmonary emboli and is on Xarelto. He has been compliant with his medications. Additionally has a history of ablation was times to the last of which was 2 years ago for frequent PVCs. He wears implantable event monitor was placed last year. Last week he reports that he was drinking heavily while out of town. He typically drinks 2 glasses of wine per evening. Yesterday evening he only had half a glass of wine. Denies any other drug use or smoking. Denies using any over-the -counter medication. He has not been sick and has not had a sore throat, cough , fever or any abdominal pain recently. REVIEW OF SYSTEMS: Constitutional: No fever, no chills. Eyes: No discharge. ENT: No sore throat. Cardiovascular: No chest pain, no palpitations. Respiratory: No cough, no shortness of breath. Gastrointestinal: No abdominal pain, no vomiting. Genitourinary: No hematuria. Musculoskeletal: No back pain. Skin: No rashes. Neurological: No headache. Smoking Status: Never smoked Physical Exam: General Appearance: Alert and no distress. Eyes: Pupils equal and round no injection no nystagmus Respiratory: Chest is nontender, lungs are clear to auscultation. Cardiac: regular rate and rhythm. No diaphoresis or leg swelling. No calf tenderness. Gastrointestinal: Abdomen is soft and nontender, no masses, bowel sounds normal. Musculoskeletal: Neck is supple and nontender. No JVD Extremities have full range of motion and are nontender. Equal strength in bilateral upper extremities and lower extremities. Skin: No rashes or lesions. Neuro: Cranial nerves grossly intact. Normal Romberg. No nystagmus. Equal grasp. No ulnar drift. Able to ambulate without difficulty. Normal heel to anderson. He did struggle with finger to nose on the left side but after repetition was able to complete this without difficulty. Constitutional: Initial Vital Signs Temperature (C) 37.0 C 11/19/17 16:45 Heart Rate 61 11/19/17 16:45 Respiratory Rate 16 11/19/17 16:45 Blood Pressure 135/67 H 11/19/17 16:45 O2 Sat (%) 98 11/19/17 16:45 O2 Delivery Mode Room Air Allergies/Adverse Reactions: Iodinated Contrast- Oral and IV Dye Allergy (Severe, Verified 06/11/16 09:34) Hives enoxaparin sodium [From Lovenox] Allergy (Intermediate, Verified 06/11/16 09:34) Rash Penicillins Allergy (Verified 06/11/16 09:34) Unknown Home Medications: Medication Instructions Recorded Atorvastatin Calcium 11/19/17 Diazepam [Valium 2 MG (*)] 2 mg PO BID PRN #10 tab 11/19/17 Diltiazem 11/19/17 Plavix 11/19/17 Xarelto 11/19/17 Medical Decision Making - Diagnostics Imaging Results: Imaging Impressions Brain MRI 11/19/17 17:33 Impression: 1. Scattered foci of white matter T2 hyperintensity are nonspecific, but probably reflect small vessel ischemic disease. 2. Negative for acute cortical ischemia. 3. Single punctate focus of diminished signal on the susceptibility weighted sequence which may be related to hemosiderin deposit from a remote petechial hemorrhagic foci. 4. See above report for additional findings. Results called and discussed with Percy Agarwal PA-C on November 19, 2017 at 1832 hours. Carotid Doppler Study 11/19/17 19:21 Impression: No significant plaque formation is identified and there is no Doppler evidence for hemodynamically significant stenosis of either carotid bifurcation. Results called to the emergency Department on 11/19/2017 at 20:21. Measurement of carotid stenosis is based on velocity parameters that correlate the residual internal carotid diameter with [place] Symptomatic Carotid Endarterectomy Trial (NASCET) based stenosis levels. ED Course/Re-evaluation: 67-year-old male here with dizziness and blurry vision. He isn't a normal neurologic exam other than difficulty with cerabd-rn-ghgj testing on the left side. MRI was ordered showing no mass, bleed or signs of ischemia. Initial EKG shows sinus rhythm with a rate of 57 1st degree AV block. Review of his prior EKG shows pre-existing 1st degree AV block in June 2016. Has no ST elevation or depression. No ectopy. I did call [employer] rep to discuss his the vent monitor. They were able to walk his last 24 hr of activity and have noted no events including no a arrhythmia, bradycardia or tachycardia. Patient was given IV fluid and a small dose of Valium and feels significantly improved. He is ambulatory without any ataxia or troubles with coordination or chest pain while ambulating. Differential Diagnosis: Arrhythmia, ACS, CVA, dehydration - Data Points Laboratory Results: Laboratory Results 11/19/17 17:45 11/19/17 17:18 11/19/17 11/19/17 11/19/17 17:49 17:45 17:45 WBC 6.22 10^3/uL 10^3/uL (3.80-9.50) RBC 4.40 10^6/uL 10^6/uL (4.40-6.38) Hgb 13.8 g/dL g/dL (13.7-17.5) Hct 41.0 % % (40.0-51.0) MCV 93.2 fL fL (81.5-99.8) MCH 31.4 pg pg (27.9-34.1) MCHC 33.7 g/dL g/dL (32.4-36.7) RDW 13.2 % % (11.5-15.2) Plt Count 254 10^3/uL 10^3/uL (150-400) MPV 9.9 fL fL (8.7-11.7) Neut % (Auto) 68.8 % % (39.3-74.2) Lymph % (Auto) 24.0 % % (15.0-45.0) Cascade % (Auto) 5.1 % % (4.5-13.0) Eos % (Auto) 1.3 % % (0.6-7.6) Baso % (Auto) 0.5 % % (0.3-1.7) Nucleat RBC Rel Count 0.0 % % (0.0-0.2) Absolute Neuts (auto) 4.28 10^3/uL 10^3/uL (1.70-6.50) Absolute Lymphs (auto) 1.49 10^3/uL 10^3/uL (1.00-3.00) Absolute Monos (auto) 0.32 10^3/uL 10^3/uL (0.30-0.80) Absolute Eos (auto) 0.08 10^3/uL 10^3/uL (0.03-0.40) Absolute Basos (auto) 0.03 10^3/uL 10^3/uL (0.02-0.10) Absolute Nucleated RBC 0.00 10^3/uL 10^3/uL (0-0.01) Immature Gran % 0.3 % % (0.0-1.1) Immature Gran # 0.02 10^3/uL 10^3/uL (0.00-0.10) APTT 39.3 SEC H SEC (23.0-38.0) Sodium Potassium Chloride Carbon Dioxide Anion Gap BUN Creatinine Estimated GFR Glucose Calcium Magnesium Total Bilirubin AST ALT Alkaline Phosphatase POC Troponin I 0.01 ng/mL ng/mL (0.00-0.08) Total Protein Albumin 11/19/17 17:18 WBC RBC Hgb Hct MCV MCH MCHC RDW Plt Count MPV Neut % (Auto) Lymph % (Auto) Cascade % (Auto) Eos % (Auto) Baso % (Auto) Nucleat RBC Rel Count Absolute Neuts (auto) Absolute Lymphs (auto) Absolute Monos (auto) Absolute Eos (auto) Absolute Basos (auto) Absolute Nucleated RBC Immature Gran % Immature Gran # APTT Sodium 138 mEq/L mEq/L (135-145) Potassium 3.8 mEq/L mEq/L (3.3-5.0) Chloride 105 mEq/L mEq/L (97-110) Carbon Dioxide 26 mEq/l mEq/l (22-31) Anion Gap 7 mEq/L L mEq/L (8-16) BUN 21 mg/dL mg/dL (7-23) Creatinine 0.9 mg/dL mg/dL (0.7-1.3) Estimated GFR > 60 Glucose 150 mg/dL H mg/dL (70-100) Calcium 9.1 mg/dL mg/dL (8.5-10.4) Magnesium 2.0 mg/dL mg/dL (1.6-2.3) Total Bilirubin 0.5 mg/dL mg/dL (0.1-1.4) AST 21 IU/L IU/L (17-59) ALT 34 IU/L IU/L (21-72) Alkaline Phosphatase 78 IU/L IU/L (38-126) POC Troponin I Total Protein 6.7 g/dL g/dL (6.3-8.2) Albumin 3.9 g/dL g/dL (3.5-5.0) Medications Given: Discontinued Medications Diazepam (Valium) 2 mg PO EDNOW ONE Stop: 11/19/17 19:22 Last Admin: 11/19/17 19:56 Dose: 2 mg Sodium Chloride (Ns) 1,000 mls @ 0 mls/hr IV EDNOW ONE; Wide Open PRN Reason: Protocol Stop: 11/19/17 17:22 Last Admin: 11/19/17 17:45 Dose: 1,000 mls Point of Care Test Results: Chemistry 11/19/17 17:49 POC Troponin I 0.01 ng/mL ng/mL (0.00-0.08) Departure - Departure Disposition: Home, Routine, Self-Care Clinical Impression: Dizziness, Dehydration Condition: Good Instructions: Dizziness (ED) Additional Instructions: Return to the ER for any worsening symptoms such as double vision, inability to walk, chest pain or shortness of breath. Referrals: Dipti Belcher MD [Primary Care Provider] - As per Instructions Prescriptions: Diazepam [Valium 2 MG (*)] 2 mg PO BID PRN #10 tab PRN Reason: Dizziness
[2017-11-19] MEDS ORDERED: NS 1,000 ML IV ONE (17:21)
--- NOTE | 2017-11-19 17:30 | CPEKG ---
Heart Rate: 57 RR Interval: 1053 P-R Interval: 220 QRSD Interval: 86 QT Interval: 432 QTC Interval: 421 P Kincaid: 18 QRS Kincaid: 6 T Wave Kincaid: 22 EKG Severity - ABNORMAL ECG - EKG Impression: SINUS RHYTHM EKG Impression: FIRST DEGREE AV BLOCK EKG Impression: BORDERLINE T WAVE ABNORMALITIES Electronically Signed By: Sylwia Billings 19-Nov-2017 19:50:01
[2017-11-19 18:13] LABS: PLATELET COUNT 254 10^3/uL (150-400)
[2017-11-19] MEDS ORDERED: DIAZEPAM 2 MG TAB PO ONE (19:21)
[2017-11-19 20:40] VITALS: BP 127/70
== END 2017-11-19 20:49 | disposition home or self-care (01) ==
DX: R42 Dizziness and giddiness (principal); E86.0 Dehydration
CPT/HCPCS: 84484-PO

== ENCOUNTER → 2018-02-05 | Outpatient (CLI) | payer OTHER | LOC: FIMAGING 10:42 | PROVIDERS: ATTEND Physician Assistant Medical | DX: R42 Dizziness and giddiness (principal) ==

== ENCOUNTER 2018-09-23 09:43 | Emergency (ER) | payer OTHER ==
[2018-09-23] MEDS ORDERED: LET GEL TOPICAL 1 EA SYR TP ONE (10:00)
--- NOTE | 2018-09-23 10:27 | EDPHY ---
H & P Time Seen by Provider: 09/23/18 10:00 HPI/ROS: CHIEF COMPLAINT: Hand laceration History by patient HISTORY OF PRESENT ILLNESS: 68-year-old [id number] man presents complaining of razor blade cut to his right small finger on the volar surface while using a box gluer swell as a 2nd cut on his right index finger. He denies any numbness in the finger or difficulty with movement. He is on Xarelto and baby aspirin for his underlying medical problems and has had difficulty controlling the bleeding. He is unsure how the accident happened. He was cutting caulk for drywall. His last tetanus shot was in 2001. He says it was a clean razor. He denies any other pain or injury. REVIEW OF SYSTEMS: As in HPI, and all other systems reviewed and are negative Smoking Status: Never smoked Physical Exam: General Appearance: Alert and no distress. Head: Normocephalic, atraumatic Eyes: Pupils equal and round no injection. Extraocular movements are intact. Musculoskeletal: Neck is supple and nontender. Extremities: Right hand: positive jagged deep 3 cm laceration to the volar surface of small finger between the PIP and D IP joint. Patient is able to fully flex against resistance from both PIP and DIP joint. The distal 2 point discrimination is intact. Distal cap refills less than 2 sec. Right index finger: Nonsuturable, superficial 2 cm laceration along radial- volar surface between PIP and D IP joint. Distal cap refills less than 2 sec, distal 2 point discrimination is intact, finger has full range of motion against resistance at all joints. Skin: No rashes or lesions except as described above. Constitutional: Initial Vital Signs Temperature (C) 37 C 09/23/18 09:49 Heart Rate 77 09/23/18 09:49 Respiratory Rate 16 09/23/18 09:49 Blood Pressure 157/82 H 09/23/18 09:49 O2 Sat (%) 95 09/23/18 09:49 O2 Delivery Mode Room Air Allergies/Adverse Reactions: enoxaparin sodium [From Lovenox] Allergy (Verified 09/23/18 09:52) Pt reports Rash Iodinated Contrast- Oral and IV Dye Allergy (Verified 09/23/18 09:52) Pt reports rash oxycodone Allergy (Verified 09/23/18 09:52) Pt reports "head goes nuts" Penicillins Allergy (Verified 09/23/18 09:52) Pt unsure of reaction Home Medications: Medication Instructions Recorded Xarelto 11/19/17 Aspirin 09/23/18 Bystolic 09/23/18 Paxil 09/23/18 MDM/Departure - MDM Procedures: Procedure: Laceration repair. Verbal consent was obtained from the patient. The 3 cm laceration on the right small finger was anesthetized in the usual fashion with a finger block with 0.25 % bupivacaine as well as topical LET to help with hemostasis.. The wound was irrigated, draped and explored to its base with a gloved finger. There were no deep structures involved. No tendon injury was identified. The wound was repaired with 8 x 5 0 Prolene interrupted sutures without complication. The wound repair was single layer an uncomplicated. The procedure was performed by myself. Medications Given: Discontinued Medications Tetracaine/Epinephrine/Lidocaine (Let Gel Topical) 1 ea TP EDNOW ONE Stop: 09/23/18 10:01 Last Admin: 09/23/18 10:02 Dose: 1 ea ED Course/Re-evaluation: 60-year-old man presents with finger laceration to his right small finger. There is no evidence of neurovascular compromise or tendon injury on exam. Wound was repaired we discussed signs and symptoms of infection, return precautions and home care. - Depart Disposition: Home, Routine, Self-Care Clinical Impression: Laceration Condition: Good Instructions: Finger Laceration (ED) Additional Instructions: You were seen by Dr. Gali Gaines today. Keep your dressing on for the next 24 hr. After that you may remove it and wash the wound regularly with soap and water, keep it covered with ointment such as Aquaphor and a bandage until the sutures come out. Do not submerge the wound such as in a swimming pool. Please have the sutures removed in 7-10 days. Watch for signs and symptoms of infection including but not limited to pus from the wound, increased pain or redness, unexplained fever. Return for any worsening or new concerns. Referrals: Dipti Belcher MD [Primary Care Provider] - As per Instructions
[2018-09-23 11:34] VITALS: BP 129/67
== END 2018-09-23 11:32 | disposition home or self-care (01) ==
LOC: CED 09:43
PROC: 0HQFXZZ Repair Right Hand Skin, External Approach (ICD-10-PCS; principal; 2018-09-23)
DX: S61.216A Laceration without foreign body of right little finger without damage to nail, initial encounter (principal); W26.0XXA Contact with knife, initial encounter; Z79.01 Long term (current) use of anticoagulants
CPT/HCPCS: 99282-ER